=== PATIENT | male | born 1955 | race Caucasian/White ===

== ENCOUNTER → 2019-11-20 09:57 | Outpatient (CLI) | payer OTHER, SELFPAY ==
--- NOTE | 2019-11-20 | DI.MRI.S_ITS ---
PROCEDURE: MR HEAD/BRAIN WO CON INDICATIONS: Other amnesia TECHNIQUE: Noncontrast axial T1 spin echo, axial T2 fast spin echo, sagittal and axial FLAIR, coronal T2 fast spin echo, axial gradient echo, axial diffusion and ADC through the brain. COMPARISON: None. FINDINGS: Image quality: Excellent. CSF Spaces: Basal cisterns are patent. No extra-axial fluid collections. Ventricles are normal in size and shape. Brain: No intracranial masses or hemorrhage. Flores/white matter interface is normal. Brainstem appears normal. Diffusion-weighted images demonstrate no acute ischemic insult. No chronic ischemic insults. Normal intravascular flow voids are present. There is a focus of increased T2/FLAIR within the right cerebellum. This likely is related to old trauma or ischemia. Minimal areas of periventricular and subcortical white matter hyperintensities are present. Skull and face: Calvarium has normal marrow signal. Orbits appear normal. Sinuses: Sinuses demonstrate minimal valverde sinus disease. IMPRESSION: 1. No acute intracranial process. 2. Minimal areas of periventricular and subcortical white matter hyperintensities, suspected to represent early changes of chronic microvascular ischemia. Dictated by: Lizette Nj M.D. on 11/20/2019 at 13:22 Approved by: Lizette Nj M.D. on 11/20/2019 at 13:26
== END ==
PROVIDERS: PCP Family Medicine; Referring Provider Psychiatry & Neurology Neurology; Visit Provider Psychiatry & Neurology Neurology
DX: R41.3 Other amnesia (principal)
CPT/HCPCS: 70551

== ENCOUNTER 2022-11-07 13:58 | Day surgery (SDC) | payer MEDICARE, OTHER, SELFPAY ==
--- NOTE | 2022-11-07 | PATH_ITS ---
[facility] Accession Number: [id number] No. of containers..02 Tissue . 01 Material submitted: . PART A: colon - ASCENDING COLON POLYP PART B: rectum - RECTUM POLYP . 01 Clinical history: . SCREENING COLONOSCOPY . 01 Diagnosis: A. Ascending Colon, Polyp, Biopsy: Tubular adenoma. . B. Rectum, Polyp, Biopsy: Hyperplastic polyp. MRV 11/09/2022 1526 Local . 01 Electronically signed: . Radha Blanchard MD, Pathologist NPI- [id number] . 01 Gross description: . Part A: ASCENDING COLON POLYP: Received in formalin are 2 fragment(s) of nobles, soft tissue measuring 0.5 x 0.2 x 0.2 cm to 0.2 x 0.2 x 0.1 cm submitted entirely in 1 cassette(s) Part B: RECTUM POLYP: Received in formalin is 1 fragment(s) of nobles, soft tissue measuring 0.3 x 0.1 x 0.1 cm submitted entirely in 1 cassette(s) /CPE 11/08/2022 0858 Local . 01 Pathologist provided ICD-10: D12.2 . 01 CPT . 968617, [id number] Specimen Comment: A courtesy copy of this report has been sent to [phone] Performed at: 01 [facility] [address] [place] [address], [place], [place] [id number] MD Carlin Oliver MD Phone: [phone]
--- NOTE | 2022-11-07 14:23 | PM.HP.1 ---
History of Present Illness History of Present Illness Date Patient Seen: 11/07/22 Time Patient Seen: 14:23 Chief complaint: Screening Colonoscopy Narrative: Here for colon cancer screening Review of Systems Review of Systems ROS: Yes All systems reviewed with the patient and are negative except as otherwise documented Exam Const General: cooperative HENMT Head: normal to inspection Eyes General: appearance normal, both eyes and all related structures Neck Neck: normal visual inspection Chest Chest: normal inspection of the chest Resp Effort & Inspection: normal respiratory effort Cardio Rate: regular rate GI Inspection: normal to inspection Skin General: no rashes or lesions noted Neuro General: patient alert and patient awake Extrem General: normal to inspection and no pedal edema Psych Appearance: grossly normal Assessment & Plan Assessment & Plan narrative: 67-year-old male presenting for colon cancer screening. Colonoscopy is pursued today. Time Spent With Patient Critical Care time: I spent a total of [] minutes of critical care time on this patient's care today; this time is exclusive of procedural time.
--- NOTE | 2022-11-07 14:24 | PM.PREOP ---
Pre-operative Note Interval Note History & Physical reviewed/Exam performed by Physician: Yes Changes to H&P: No ASA Class (for procedural sedation): II
[2022-11-07] MEDS: LACTATED RINGERS 1,000 ML 100 ML IV (14:27)
[2022-11-07 14:38] VITALS: BP 162/93; PULSE 74; RESP 16; TEMP 36.6; BMI 34.7
--- NOTE | 2022-11-07 15:44 | P.OP.COLON_ITS ---
Operative Date/Time/Diagnoses Date of procedure: 11/07/22 Time of procedure: 15:44 Pre-op diagnosis: Colon cancer screening Post-op diagnosis: same Procedure & Clinicians Study performed: Colonoscopy with hot snare polypectomy cold snare polypectomy Same procedure as scheduled: Yes Indications: Colon cancer screening Surgeon: Km Jim Procedure Notes SCOAP/Timeout: Done Procedure in detail: After the risks and benefits were explained, written and verbal informed consent was obtained. The patient was brought into the procedure room and placed into the left lateral decubitus position. Please see anesthesia notes for sedation details. Digital rectal examination was accomplished. The scope was introduced into the patient and advanced under direct visualization to the cecum as identified by the appendiceal orifice and ileocecal valve. The scope was slowly withdrawn to carefully examine the mucosa for any defects or lesions. Comprehensive imaging was accomplished throughout the rectum including the d entate line. The colon was decompressed, the scope was then removed from the patient who tolerated the procedure well. Adult colonoscope Bowel prep fair Scope withdrawal time: 17 minutes Sedation minutes: 27 Complications: none Impression: The patient had a fairly lengthy redundant colon. There was diverticulosis in the left colon. In the ascending colon there was a 6-7 mm polyp removed with hot snare. In the distal transverse there was a diminutive polyp removed with cold snare but this was lost in the accessory channel of the scope after its removal. In the rectum there was a 5 mm polyp removed with cold snare. Grade 2-3 hemorrhoids were noted. Endoscopic diagnosis 1. Fair bowel prep 2. Diverticulosis 3. Colon polyps 4. Grade 2-3 hemorrhoids Post-procedure Plan for aftercare: 1. Await histopathology 2. Repeat colonoscopy 3 years. Disposition: PACU
[2022-11-07 15:46] VITALS: BP 99/56; PULSE 65; RESP 15; TEMP 36.4; O2SAT 92
[2022-11-07 15:50] VITALS: BP 106/71; PULSE 70; RESP 20; O2SAT 93
[2022-11-07 15:57] VITALS: BP 119/76; PULSE 68; RESP 20; O2SAT 95
== END 2022-11-07 16:11 | disposition home or self-care (01) ==
PROVIDERS: Referring Provider Internal Medicine Gastroenterology; Visit Provider Internal Medicine Gastroenterology
PROC: 0DJD8ZZ Inspection of Lower Intestinal Tract, Via Natural or Artificial Opening Endoscopic (ICD-10-PCS; CPT 45378; principal; 2022-11-07 15:30)
DX: Z12.11 Encounter for screening for malignant neoplasm of colon (principal); K57.30 Diverticulosis of large intestine without perforation or abscess without bleeding; K64.2 Third degree hemorrhoids; D12.2 Benign neoplasm of ascending colon; K62.1 Rectal polyp
CPT/HCPCS: 45380; J2704; J3010

== ENCOUNTER 2023-03-26 15:31 | Emergency (ER) | payer MEDICARE, OTHER, SELFPAY ==
[2023-03-26] VITALS (19 sets, daily range): BP systolic 135–158; BP diastolic 74–96; PULSE 63–71; RESP 11–34; TEMP 36.4; O2SAT 91–95; BMI 35.5
--- NOTE | 2023-03-26 15:41 | DI.RAD.S_ITS ---
PROCEDURE: XR CHEST 1V INDICATIONS: chest pain TECHNIQUE: One view of the chest was acquired. COMPARISON: None. FINDINGS: Surgical changes and devices: None. Lungs and pleura: Lungs are clear. No pleural effusions or pneumothorax. Mediastinum: Mediastinal contours appear normal. Heart size is normal. Bones and chest wall: No suspicious bony lesions. Overlying soft tissues appear unremarkable. IMPRESSION: No acute cardiopulmonary abnormalities or focal airspace disease. Dictated by: Segun Nails M.D. on 03/26/2023 at 15:25 Approved by: Segun Nails M.D. on 03/26/2023 at 15:27
[2023-03-26 16:00] LABS: Basophils Absolute Auto 100 /uL (0-100); Basophils Percent Auto 0.8 % (0-2); Eosinophils Absolute Auto 100 /uL (0-450); Eosinophils Percent Auto 1.9 % (2-4); Hematocrit 51.1 % (41-53); Hemoglobin 17.5 g/dL (13.5-17.5); Lymphocytes Absolute Auto 1300 /uL (1100-4500); Lymphocytes Percent Auto 17.9 % (25-40); Mean Corpuscular HGB Conc 34.3 % (30-36); Mean Corpuscular Volume 78.9 fL (80-100); Monocytes Absolute Auto 500 /uL (0-900); Monocytes Percent Auto 7.5 % (3-14); Neutrophils Absolute Auto 5100 /uL (1500-7000); Neutrophils Percent Auto 71.9 % (50-75); Platelet Count 200 X10^3/uL (150-400); Red Blood Cell Count 6.48 X10^6/uL (4.5-5.9); Red Cell Distribution Width 14.3 % (11.6-14.8); White Blood Cell Count 7.1 X10^3/uL (4.5-11.0)
[2023-03-26 16:01] LABS: Add Manual Diff / Slide Review SLIDE REVIEW
[2023-03-26 16:13] LABS: INR 1.1 (0.9-1.3); Prothrombin Time 12.5 SECONDS (10.1-12.7)
[2023-03-26 16:16] LABS: PTT Partial Thromboplastin Tim 36 SECONDS (26-36)
[2023-03-26 16:20] LABS: Alanine Aminotransferase 29 IU/L (<50); Albumin 4.3 g/dL (3.5-5.0); Albumin Globulin Ratio 1.3 (1.0-2.8); Alkaline Phosphatase 90 U/L (38-126); Aspartate Aminotransferase 28 IU/L (17-59); BUN Creatinine Ratio 16.2 (6-22); Bilirubin Total 2.3 mg/dL (0.2-1.3); Blood Urea Nitrogen 16 mg/dL (9-20); Carbon Dioxide 23 mmol/L (22-32); Chloride 106 mmol/L (98-107); Creatine Kinase 98 U/L (55-170); Estimated Glomerular Filt Rate > 60 mL/min (>60); Globulin 3.2 g/dL (1.7-4.1); Glucose 103 mg/dL (80-110); HEMOLYSIS < 15 (0-50); Lipase 128 U/L (23-300); Magnesium 2.1 mg/dL (1.6-2.3); Sodium 137 mmol/L (137-145); Total Protein 7.5 g/dL (6.3-8.2)
[2023-03-26 16:32] LABS: Troponin I < 0.012 ng/mL (0.01-0.034)
[2023-03-26 16:36] LABS: RBC Morphology Normal Morphology
--- NOTE | 2023-03-26 18:17 | ED_ITS ---
HPI - General Adult General Chief complaint: Syncope Stated complaint: Head inj Time Seen by Provider: 03/26/23 15:42 Source: patient and family Mode of arrival: Ambulatory History of Present Illness HPI narrative: 67-year-old gentleman currently in between doctors as he is switching from [facility] medicine to Medicare treatment with civilian providers. Has a history of hypertension and no other significant abnormalities. He was in his usual state of excellent health, standing up and had a syncopal episode. He woke up on the floor was slightly confused until he reoriented himself. He describes no recent illnesses, no chest pain no palpitations. He had a sense that he was dizzy and then woke up on the floor. There was no loss of bowel or bladder. No seizure- like activity. He reports no recent viral syndrome, no increase in chest pain, exertional dyspnea. No stroke or TIA type symptoms. He has never had similar events. Related Data Home Medications Medication Instructions Recorded Confirmed aspirin 81 mg tablet,delayed 81 mg PO DAILY 11/07/22 11/07/22 release hydrochlorothiazide 25 mg tablet 25 mg PO DAILY 11/07/22 11/07/22 losartan 50 mg tablet 50 mg PO DAILY 11/07/22 11/07/22 Allergies Allergy/AdvReac Type Severity Reaction Status Date / Time No Known Drug Allergies Allergy Verified 03/26/23 15:32 Review of Systems Review of Systems Narrative: Pertinent positive and negative findings as per HPI Patient History Medical History (Updated 03/26/23 @ 20:34 by Clara Draper MD) Hypertension Social History household members: spouse Smoking Status: Former smoker alcohol intake: former Smoking Status: Former smoker Substance Use Type: does not use Exam Initial Vital Signs Initial Vital Signs: Vital Signs Temperature 97.5 F L 03/26/23 15:32 Pulse Rate 71 03/26/23 15:32 Respiratory Rate 18 03/26/23 15:32 Blood Pressure 158/85 H 03/26/23 15:32 Pulse Oximetry 95 03/26/23 15:32 Oxygen Delivery Method Room Air 03/26/23 15:32 General: Healthy appearing, in no acute distress. Able to give a complete and coherent history. Well-nourished well-developed HEENT: Moist mucous membranes, normal sclera with reactive pupils, he has a 4 cm simple laceration to the top of his head. There is no surrounding abrasions or contusion. Neck: No midline point tenderness., supple Respiratory: Lungs are clear to auscultation, no wheezing no rales no rhonchi. Full and symmetrical air movement Cardiac: Regular rate and rhythm no murmurs no bruits Abdomen: Soft, nontender, good bowel tones, no flank pain Skin: Warm and dry, no rashes Neurologic: Grossly neurologically intact with no obvious asymmetries or abnormalities Extremities: No trauma, well perfused Psych: Cooperative, appropriate insight and affect Procedures Laceration Repair Scalp laceration: Time of procedure: 20:35 Site: scalp Size (cm): 4 Description: linear Depth: simple, single layer Local Anesthetic: other anesthetic (Patient declines local anesthetic) Skin layer closed with: dylan Course Orders Ordered: ED Orders 03/26/23 15:41 XR chest 1V Stat EKG-12 Lead Stat 03/26/23 15:49 Complete Blood Count AUTO DIFF Stat Comprehensive Metabolic Panel Stat Lipase Stat Magnesium Stat PTT Partial Thromboplastin Gumaro Stat Prothrombin Time INR Stat Troponin & CK Cardiac Panel Stat 03/26/23 18:28 CT cervical spine wo con Stat CT head/brain wo con Stat Vital Signs Vital signs: Vital Signs - 8 hr 03/26/23 15:32 03/26/23 15:45 03/26/23 15:51 Temperature 97.5 F L Pulse Rate 71 67 67 Respiratory Rate 18 33 H Blood Pressure 158/85 H Pulse Oximetry 95 94 Oxygen Delivery Method Room Air 03/26/23 15:51 03/26/23 16:00 03/26/23 16:00 Temperature Pulse Rate 66 Respiratory Rate Blood Pressure 141/87 H 141/90 H Pulse Oximetry 92 Oxygen Delivery Method 03/26/23 16:30 03/26/23 16:30 03/26/23 17:00 Temperature Pulse Rate 67 Respiratory Rate 34 H Blood Pressure 137/81 137/80 Pulse Oximetry 92 Oxygen Delivery Method 03/26/23 17:00 03/26/23 17:04 03/26/23 17:04 Temperature Pulse Rate 66 65 Respiratory Rate 23 25 H Blood Pressure 146/74 H Pulse Oximetry 92 91 Oxygen Delivery Method 03/26/23 17:15 03/26/23 17:15 03/26/23 17:30 Temperature Pulse Rate 65 Respiratory Rate 28 H Blood Pressure 137/87 135/75 Pulse Oximetry 92 Oxygen Delivery Method 03/26/23 17:30 03/26/23 17:45 03/26/23 17:45 Temperature Pulse Rate 64 64 Respiratory Rate 25 H 29 H Blood Pressure 141/80 H Pulse Oximetry 93 92 Oxygen Delivery Method 03/26/23 18:09 03/26/23 18:10 03/26/23 18:10 Temperature Pulse Rate 64 66 Respiratory Rate 11 L Blood Pressure 147/96 H Pulse Oximetry 93 Oxygen Delivery Method 03/26/23 18:15 03/26/23 18:15 03/26/23 18:30 Temperature Pulse Rate 65 Respiratory Rate Blood Pressure 145/86 H 138/85 Pulse Oximetry 92 Oxygen Delivery Method 03/26/23 18:30 03/26/23 19:00 Temperature Pulse Rate 68 65 Respiratory Rate Blood Pressure Pulse Oximetry 92 94 Oxygen Delivery Method Medical Decision Making Lab Data 03/26/23 15:49 03/26/23 15:49 Labs: Lab Results 03/26/23 03/26/23 03/26/23 Range/Units 15:49 15:49 15:49 WBC 7.1 (4.5-11.0) X10^3/uL RBC 6.48 H (4.5-5.9) X10^6/uL Hgb 17.5 (13.5-17.5) g/dL Hct 51.1 (41-53) % MCV 78.9 L (80-100) fL MCH 27.0 (26-34) PG MCHC 34.3 (30-36) % RDW 14.3 (11.6-14.8) % Plt Count 200 (150-400) X10^3/uL Neut % (Auto) 71.9 (50-75) % Lymph % (Auto) 17.9 L (25-40) % [place] % (Auto) 7.5 (3-14) % Eos % (Auto) 1.9 L (2-4) % Baso % (Auto) 0.8 (0-2) % Neut # (Auto) 5100 (8576-8396) /uL Lymph # (Auto) 1300 (4507-5047) /uL [place] # (Auto) 500 (0-900) /uL Eos # (Auto) 100 (0-450) /uL Baso # (Auto) 100 (0-100) /uL RBC Morphology Normal morphology PT 12.5 (10.1-12.7) SECONDS INR 1.1 (0.9-1.3) APTT 36 (26-36) SECONDS Sodium 137 (137-145) mmol/L Potassium 4.0 (3.4-5.1) mmol/L Chloride 106 (98-107) mmol/L Carbon Dioxide 23 (22-32) mmol/L BUN 16 (9-20) mg/dL Creatinine 0.99 (0.66-1.25) mg/dL Estimated GFR > 60 (>60) mL/min BUN/Creatinine Ratio 16.2 (6-22) Glucose 103 (80-110) mg/dL Calcium 9.0 (8.4-10.2) mg/dL Magnesium 2.1 (1.6-2.3) mg/dL Total Bilirubin 2.3 H (0.2-1.3) mg/dL AST 28 (17-59) IU/L ALT 29 (<50) IU/L Alkaline Phosphatase 90 (38-126) U/L Total Creatine Kinase 98 (55-170) U/L Troponin I < 0.012 (0.01-0.034) ng/mL Total Protein 7.5 (6.3-8.2) g/dL Albumin 4.3 (3.5-5.0) g/dL Globulin 3.2 (1.7-4.1) g/dL Albumin/Globulin Ratio 1.3 (1.0-2.8) Lipase 128 (23-300) U/L [facility] Narrative Medical decision making narrative: CC: Syncopal episode. This is an acute episode life-threatening potential Complicating co-morbidities: Hypertension Data collected from: patient, son Social determinants of health that may influence the patients condition: Curr ently in between providers switching from [place] care to civilian care Differential considered: Cardiac arrhythmia, TIA, stroke, acute coronary syndrome, hypotension, sepsis. With the head laceration intracranial hemorrhage and cervical spine injury along with additional trauma Exam documented above, pertinent findings include: 67-year-old gentleman with actually quite benign exam. He has a simple 4 cm laceration to the top of his head with no surrounding bruising. Lab Test results independently reviewed as above. Pertinent findings: CBC is unremarkable. No leukocytosis no acute anemia Chemistries are unremarkable outside of a bilirubin elevated at 2.3 with LFTs otherwise normal. Troponin essentially undetectable at is 0.012 Independently reviewed EKG shows sinus rhythm at a rate of 66. Normal intervals, normal axis. No acute ischemic changes Imaging studies independently reviewed: Chest x-ray is entirely benign Treatments: 3 dylan to the scalp wound Discussion: 67-year-old gentleman with unprovoked syncopal episode uncertain etiology. At this point initial workup is unremarkable and with shared decision making he would much prefer discharge rather than hospitalization for further evaluation. We will not recommend any changes to his blood pressure medications but will ask that he check his blood pressures intermittently to see if hypotension could have contributed to the slight dizzy spell and eventual syncopal episode. He will need his dylan removed in about 10 days. At this point I am seeing no evidence for life-threatening etiology including heart attack, stroke, dissection, sepsis, intracranial hemorrhage tumor or mass, did explain the concerning nature of unprovoked and nondiagnostic workup for a syncopal episode. He will follow up with his outpatient provider. Discharge Plan Departure Patient Disposition: Home Clinical Impression: Syncope and collapse Laceration of scalp Qualifiers: Encounter type: initial encounter Qualified Code(s): S01.01XA - Laceration w ithout foreign body of scalp, initial encounter Instructions: DI for Syncope in Adults (Fainting) Activity Restrictions/Additional Instructions: Thank you for coming in today, your visit was 100% appropriate I do not have a full explanation for why you passed out today. I do know that you did not have an acute heart attack, a stroke, there is no sign of overwhelming infection, severe anemia, no obvious continued cardiac rhythm problems. The CT scan of your head shows no bleeding, no skull fracture, no tumors or masses. The CT scan of your cervical spine is also reassuring. Passing out the way you did does need additional workup. As an outpatient your primary care doctor may want to consider an echocardiogram, rhythm monitoring and even cardiac stress testing. If this happens again you do need to return to the emergency department. With the laceration to the top of your head, I placed 3 dylan. These will need to be taken out on or about April 05. It is okay to wash your hair, simply pat dry around the dylan. If you find that you are getting worse or develop any new symptoms, please feel free to return to the emergency department for further evaluation. Prescriptions: No Action hydrochlorothiazide 25 mg Tablet 25 mg PO DAILY losartan 50 mg Tablet 50 mg PO DAILY aspirin 81 mg Tablet,Delayed Release (Dr/Ec) 81 mg PO DAILY Referrals: ProviderArron [Primary Care Provider] - Stand Alone Forms: Patient Portal/API
--- NOTE | 2023-03-26 18:28 | DI.CT.S_ITS ---
PROCEDURE: CT HEAD/BRAIN WO CON INDICATIONS: syncope with head laceration TECHNIQUE: Noncontrast 4.5 mm thick angled axial sections acquired from the foramen magnum to the vertex, with coronal and sagittal reformats. For radiation dose reduction, the following was used: automated exposure control, adjustment of mA and/or kV according to patient size. COMPARISON: None. FINDINGS: Image quality: Excellent. CSF spaces: Basal cisterns are patent. No extra-axial fluid collections. The ventricles are symmetric in size and shape. Brain: No intracranial bleeds or masses. There is cerebral volume loss for age, with resultant ventricular and sulcal prominence. There are periventricular and deep white matter chronic small vessel ischemic changes. There is intracranial internal carotid artery atherosclerosis. Skull and face: Calvarium and visualized facial bones appear intact, without suspicious lesions. Sinuses: Visualized sinuses and mastoids are clear. IMPRESSION: 1. CT head without acute intracranial abnormalities or acute calvarial fractures. 2. Age-related senescent changes and sequela of chronic small vessel ischemic disease. Dictated by: Segun Nails M.D. on 03/26/2023 at 17:54 Approved by: Segun Nails M.D. on 03/26/2023 at 17:56
--- NOTE | 2023-03-26 18:28 | DI.CT.S_ITS ---
PROCEDURE: CT CERVICAL SPINE WO CON INDICATIONS: syncope TECHNIQUE: Noncontrast 3 mm thick sections acquired from the skull base to the T4 level. Sagittal and coronal reformats were then constructed. For radiation dose reduction, the following was used: automated exposure control, adjustment of mA and/or kV according to patient size. COMPARISON: None. FINDINGS: Image quality: Excellent. Bones: No acute fractures or dislocations. No acute compression fractures of the vertebral bodies. Craniocervical junction is intact. C1-C2 relationship is preserved. Visualized superior ribs are intact. Moderate multilevel cervical spondylosis. Straightening of cervical lordosis which may be due to patient positioning and/or concurrent muscle spasms. Soft tissues: Prevertebral soft tissues are normal in thickness. No paravertebral hematomas. No apical pneumothoraces. IMPRESSION: CT cervical spine without acute fracture or traumatic malalignment. Moderate multilevel cervical spondylosis. Mild straightening of normal cervical lordosis likely related to positioning and/or concurrent muscle spasms. Dictated by: Segun Nails M.D. on 03/26/2023 at 17:56 Approved by: Segun Nails M.D. on 03/26/2023 at 17:59
[2023-03-26] MEDS: LIDOCAINE 2% W/EPI INJ 20 ML (20:00)
== END 2023-03-26 20:41 | disposition home or self-care (01) ==
PROVIDERS: Emergency Medicine; Emergency Provider Emergency Medicine
DX: R55 Syncope and collapse (principal); S01.01XA Laceration without foreign body of scalp, initial encounter; W18.30XA Fall on same level, unspecified, initial encounter
CPT/HCPCS: 12002; 36415; 70450; 71045; 72125; 80053; 82550; 83690; 83735; 84484; 85025; 85610; 85730; 93005; 99283; 99284

== ENCOUNTER 2023-05-16 13:24 | Day surgery (SDC) | payer MEDICARE, OTHER, SELFPAY ==
[2023-05-04 11:32] VITALS: BMI 33.3
[2023-05-16 13:41] VITALS: BP 136/72; PULSE 80; RESP 16; TEMP 36.2; O2SAT 98; BMI 33.3
--- NOTE | 2023-05-16 14:35 | PM.PREOP ---
Pre-operative Note Interval Note History & Physical reviewed/Exam performed by Physician: Yes Changes to H&P: No H&P completed within 30 days and has changed as indicated here:: Risks benefits and alternatives of hemorrhoid banding and small hemorrhoidectomy including but not limited to injury to the sphincter complex or rectum and rare cases of pelvic sepsis patient understands and would like to proceed. He also would not like to have any IV anesthesia today just local and so he understands that there will be a need for an anal scope and local injection around the anal verge.
--- NOTE | 2023-05-16 15:18 | SUR.OPER ---
Lithotomy on padded OR bed, head on pillow, arms secured on padded arm boards at <90 degrees abduction. Legs secured in padded yellow fins stirrups.
[2023-05-16] MEDS: BUPIVACAINE LIPOSOME 266 MG/20 ML VIAL INJ (15:21)
[2023-05-16] MEDS: BUPIVACAINE 0.25% W/ EPI 30 ML VIAL INJ (15:23)
--- NOTE | 2023-05-16 16:08 | PM.OP.1 ---
Operative Date/Time/Diagnoses Date of procedure: 05/16/23 Time of procedure: 16:08 Pre-op diagnosis: Internal hemorrhoid x2 external hemorrhoid x1 and and skin tag Post-op diagnosis: same Procedure & Clinicians Procedure: Internal hemorrhoid banding x2 external hemorrhoidectomy x1 and excision of skin tag Same procedure as scheduled: Yes Indications: Please see H and P patient had symptoms from his hemorrhoids and understood the risks benefits and alternatives and wanted to proceed with banding and hemorrhoidectomy. Surgeon: Mojgan Desai Anesthesia Type: Local Operative Notes Specimen(s): none sent Procedure in detail: Patient was taken to the operating room and placed in lithotomy position. Bilateral SCDs were placed. No IV anesthesia or sedation was used. Local anesthetic was infused around the anal verge. Patient was very comfortable throughout the case on monitors and talking alert and pleasant. A anoscope was used to investigate the internal hemorrhoids and 2 areas were banded. One was the left lateral location and the other was a right posterior location. Next the external hemorrhoid was addressed in the right anterior position. A 2-0 chromic was placed and the hemorrhoid was excised using a 10. Blade scalpel and tenotomy scissors. The hemorrhoidectomy site was closed in a running locking suture until the anal verge was reached and regular running suture was used to complete the closure. Finally a small left lateral skin tag was excised and the skin was closed with a running 2-0 chromic suture. Patient tolerated the procedure well and went in good condition to the postoperative care unit Exparel was injected around the area as a local block. A Gelfoam roll was placed into the anus and gauze and mesh panties were placed. Complications: none Post-operative Condition: stable Disposition: PACU Plan for aftercare: Patient would like to drive home. Postoperative instructions including toileting with perineal scored and washcloth as well as Sitz baths twice a day and fiber supplementation were discussed with the patient.
[2023-05-16 16:18] VITALS: BP 122/80; PULSE 57; RESP 17; TEMP 36.2; O2SAT 93
== END 2023-05-16 16:44 | disposition home or self-care (01) ==
PROVIDERS: PCP Internal Medicine; Referring Provider Surgery; Visit Provider Surgery
PROC: (CPT 46260; principal; 2023-05-16 14:30)
DX: K64.8 Other hemorrhoids (principal); K64.4 Residual hemorrhoidal skin tags
CPT/HCPCS: 46260; C9290; J1100; J1170; J2405; J2704; J3010

== ENCOUNTER → 2023-11-07 | Outpatient (CLI) | payer MEDICARE, OTHER, SELFPAY ==
--- NOTE | 2023-11-07 13:32 | DI.US.S_ITS ---
PROCEDURE: US AORTA LIMITED INDICATIONS: FORMER SMOKER/SYNCOPE AND COLLAPSE TECHNIQUE: Real time scanning was performed of the aorta and iliac arteries, with image documentation. COMPARISON: None. FINDINGS: Aorta: The proximal aorta is not well seen. Mid-aorta measures 2.1 cm. Distal aortic diameter is 1.6 cm. Iliac arteries: Right common iliac artery measures 1.1 cm. Left common iliac artery measures 1.1 cm. IMPRESSION: Negative for aneurysm. Dictated by: Nader Silva M.D. on 11/07/2023 at 13:24 Approved by: Nader Silva M.D. on 11/07/2023 at 13:25
--- NOTE | 2023-11-07 13:32 | DI.ECHO.S_ITS ---
[facility] +---------+ : : [address] : [address] : : : : [id number] : : : : Phone: [phone] +---------+ Echocardiogram Report + + :Name: JULIEN DUGGAN Study Date: 11/07/2023 Height: 74 in : :[facility] ReadingLocation: Weight: 265 lb : : Gender: Male BSA: 2.4 m2 : :: 1955 Age: 68 yrs BP: 137/86 mmHg: :Reason For Study: FORMER SMOKER, SYNCOPE : :Ordering Physician: TYSON, : :RUBI Lucero Performed By: Sayra Pena : :Referring: RUBI WEISS : + + Interpretation Summary The ejection fraction is estimated to be 60-65%. Diastolic parameters suggest probable normal left ventricular diastolic function and normal filling pressures. The right ventricle is normal in size and function. No significant valvular abnormalities. Pulmonary artery pressures cannot be estimated because of the lack of a measurable TR jet velocity. Compared to the prior study dated 02/05/2015, no significant change. Procedure: A two-dimensional transthoracic echocardiogram with color flow and Doppler was performed. The study quality was technically adequate. Comparison is made with the echocardiogram of 02/05/2015. The patient was in sinus rhythm with heart rates between 58-74 bpm during the exam. Left Ventricle: The left ventricle is normal in size and wall thickness. The ejection fraction is estimated to be 60-65%. Diastolic parameters suggest probable normal left ventricular diastolic function and normal filling pressures. Right Ventricle: The right ventricle is normal in size and function. Atria: The left atrial size is normal. Right atrial size is normal. There is no Doppler evidence for an interatrial shunt. Mitral Valve: The mitral valve is normal in structure and function. There is trace mitral regurgitation. Aortic Valve: The aortic valve is not well visualized. The aortic valve is grossly normal. There is no aortic valve stenosis. No aortic regurgitation is present. Tricuspid Valve: The tricuspid valve is normal in structure and function. There is trace tricuspid regurgitation. Pulmonary artery pressures cannot be estimated because of the lack of a measurable TR jet velocity. Pulmonic Valve: The pulmonic valve is not well visualized. There is no pulmonic valvular regurgitation. Great Vessels: The aortic root is normal size. The dimensions of the ascending aorta are normal. The inferior vena cava was not visualized. Pericardium/ Pleura There is no pericardial effusion. There is no pleural effusion. MMode/2D Measurements & Calculations LVIDd: 4.5 cm LVOT diam: 2.3 cm LVIDs: 3.1 cm Ao root diam: 3.6 cm FS: 30.5 % asc Aorta Diam: 3.8 cm IVSd: 0.82 cm Ao Arch Diam (Prox Trans): 3.6 cm LVPWd: 0.82 cm LV cuba. diameter/BSA (cm/m^2): 1.8 LV sys. diameter/BSA (cm/m^2): 1.3 LA A2 area: 23.1 cm2 RA long axis: 5.3 cm LA A4 area: 16.8 cm2 RA area: 15.9 cm2 LA length (vol): 5.0 cm RA vol: 41.1 ml LA vol: 65.8 ml RA : 16.8 ml/m2 LA vol index: 26.9 ml/m2 RVD1 (basal): 4.0 cm TAPSE: 2.2 cm Doppler Measurements & Calculations Ao V2 max: 129.4 cm/sec LVOT Max Kentrell: 124.0 cm/sec Ao V2 mean: 96.5 cm/sec LV V1 max P.2 mmHg Ao max P.7 mmHg LV V1 VTI: 24.9 cm Ao mean P.0 mmHg DEMETRI(I,D): 4.2 cm2 Ao V2 VTI: 24.2 cm DEMETRI(V,D): 3.9 cm2 sev ratio: 1.0 DEMETRI indexed to BSA (cm^2/m^2): 1.7 MV E max kentrell: 61.0 cm/sec PA V2 max: 71.8 cm/sec MV A max kentrell: 62.6 cm/sec PA V2 mean: 56.5 cm/sec MV E/A: 0.97 PA mean P.3 mmHg Med Peak E' Kentrell: 10.0 cm/sec PA pr(Accel): 24.2 mmHg E/E' med: 6.1 Lat Peak E' Kentrell: 11.6 cm/sec E/E' lat: 5.3 E/e' average: 5.7 MV dec time: 0.26 sec SV(LVOT): 100.6 ml Reading Physician:08:44 PM
--- NOTE | 2023-11-09 00:49 | DI.NM.S_ITS ---
DATE OF SERVICE: 11/07/2023 PROCEDURE: Exercise treadmill stress test without imaging. ORDERING PROVIDER: Rubi Weiss M.D. INDICATIONS: The patient is a 68-year-old hypertensive male with a recent history of syncope. FINDINGS: 1. The patient was able to exercise for 10 minutes and 3 seconds on a standard Andre protocol suggesting very good exercise capacity with an EKATERINA of -24%, achieving 12.8 METS. 2. He had a normal heart rate response to exercise, achieving a maximum heart rate of 155 BPM (101% of his predicted maximum). He had a borderline hypertensive blood pressure response with a resting blood pressure of 128/90, increasing to a maximum of 200/90. 3. He had no chest discomfort or anginal symptoms except for moderate exertional dyspnea. 4. His resting ECG showed sinus rhythm with subtle ST and T-wave abnormalities that became slightly accentuated with stress but remained nonspecific. He developed occasional PVCs, occasionally in a brief bigeminal pattern, but no other complex ventricular ectopy. The PVCs resolved in late recovery. He also had occasional PACs in recovery, rarely in couplets but no sustained arrhythmias. IMPRESSION: 1. Normal exercise treadmill stress test for ischemia. 2. Very good exercise capacity without angina but moderate dyspnea. 3. He had occasional PVCs with exercise, at times in a brief bigeminal pattern but no other complex ventricular ectopy. He also had occasional PACs, rarely in couplets, in recover, but no sustained arrhythmias. 4. He had a mild hypertensive blood pressure response to exercise. Gilberto Obrien - DEREK/juan jose/FRENCH doc#: [id number]/job#: [id number] dd: 11/08/2023 16:32:00 dt: 11/09/2023 00:27:00 DICTATING /COPIES TO: Enrique Rivas COPIES MNE: JUANITO;
== END ==
PROVIDERS: PCP Internal Medicine; Referring Provider Internal Medicine Cardiovascular Disease; Visit Provider Internal Medicine Cardiovascular Disease
DX: R55 Syncope and collapse (principal); Z87.891 Personal history of nicotine dependence; I10 Essential (primary) hypertension
CPT/HCPCS: 93017; 93306; 93979

== ENCOUNTER → 2024-02-28 10:18 | Outpatient (CLI) | payer MEDICARE, OTHER, SELFPAY ==
[2024-02-28 12:07] LABS: Hematocrit 50.7 % (41-53); Hemoglobin 17.2 g/dL (13.5-17.5); Mean Corpuscular HGB Conc 33.9 % (30-36); Mean Corpuscular Hemoglobin 27.4 PG (26-34); Mean Corpuscular Volume 80.7 fL (80-100); Platelet Count 209 X10^3/uL (150-400); Red Blood Cell Count 6.28 X10^6/uL (4.5-5.9); Red Cell Distribution Width 14.5 % (11.6-14.8); White Blood Cell Count 6.8 X10^3/uL (4.5-11.0)
[2024-02-28 12:30] LABS: Alanine Aminotransferase 20 IU/L (<50); Albumin 4.5 g/dL (3.5-5.0); Albumin Globulin Ratio 1.4 (1.0-2.8); Alkaline Phosphatase 85 U/L (38-126); Aspartate Aminotransferase 23 IU/L (17-59); BUN Creatinine Ratio 18.1 (6-22); Bilirubin Total 1.9 mg/dL (0.2-1.3); Blood Urea Nitrogen 19 mg/dL (9-20); Calcium 9.1 mg/dL (8.4-10.2); Carbon Dioxide 22 mmol/L (22-32); Chloride 109 mmol/L (98-107); Cholesterol 200 mg/dL (140-199); Estimated Glomerular Filt Rate > 60 mL/min (>60); Globulin 3.2 g/dL (1.7-4.1); Glucose 109 mg/dL (80-110); HDL Cholesterol 35 mg/dL (40-60); HEMOLYSIS < 15 (0-50); LDL Cholesterol Calculated 126 mg/dL (<100); Magnesium 2.1 mg/dL (1.6-2.3); Potassium 4.4 mmol/L (3.4-5.1); Sodium 140 mmol/L (137-145); Total Protein 7.7 g/dL (6.3-8.2); Triglycerides 197 mg/dL (35-150)
[2024-02-28 12:45] LABS: Free T4, Direct Thyroxine 1.12 ng/dL (0.78-2.19)
== END ==
PROVIDERS: PCP Internal Medicine; Referring Provider Nurse Practitioner Acute Care; Visit Provider Nurse Practitioner Acute Care
DX: I47.29 Other ventricular tachycardia (principal); R55 Syncope and collapse; E78.5 Hyperlipidemia, unspecified; I47.10 Supraventricular tachycardia, unspecified
CPT/HCPCS: 36415; 80053; 80061; 83735; 84439; 84443; 85027